=== PATIENT | male | born 1970 | race Caucasian/White ===

== ENCOUNTER 2017-09-16 18:20 | Emergency (ER) | payer OTHER ==
[~2017-09-16] VITALS: Ht 180.3 cm; Wt 106.0 kg
[2017-09-16] MEDS ORDERED: ketorolac tromethamine 15mg/ml inj. IM ONE (18:45)
[2017-09-16 22:48] VITALS: BP 138/85
== END 2017-09-16 22:58 | disposition short-term general hospital (02) ==
LOC: ER 18:24 → EEVIPCON 18:24 → ER 22:58
DX: S02.652A Fracture of angle of left mandible, initial encounter for closed fracture (principal); S00.83XA Contusion of other part of head, initial encounter; S09.90XA Unspecified injury of head, initial encounter; W01.198A Fall on same level from slipping, tripping and stumbling with subsequent striking against other object, initial encounter; Y93.89 Activity, other specified; Y92.89 Other specified places as the place of occurrence of the external cause; Y99.9 Unspecified external cause status
CPT/HCPCS: 70486; 96372; 99285; J1885